=== PATIENT | male | born 1995 | race Two or more races ===

== ENCOUNTER 2025-05-25 10:25 | Outpatient (CLI) | payer MEDICAID ==
[2025-05-25 11:03] LABS: Hematocrit 44.8 % (41.0-53.0); Hemoglobin 15.0 g/dL (13.5-17.5); Mean Corpuscular Hemoglobin 27.5 pg (28.0-32.0); Mean Corpuscular Volume 81.9 fL (80.0-100.0); Nucleated Red Blood Cells % 0.1 %
[2025-05-25 11:07] LABS: Urine Protein, UAD TRACE (Negative)
[2025-05-25 11:50] LABS: Albumin 4.0 g/dL (3.2-4.8); Alkaline Phosphatase 66 U/L (46-116); Anion Gap 7 (5-15); BUN/Creatinine Ratio 8.2 (10.0-20.0); Bilirubin, Total 0.5 mg/dL (0.2-1.0); Calcium 8.8 mg/dL (8.7-10.4); Carbon Dioxide 30 mmol/L (20-31); Chloride 106 mmol/L (98-107); Cholesterol 186 mg/dL (< 200); Glucose 96 mg/dL (74-106); HDL Cholesterol 59 mg/dL (40-59); Potassium 4.8 mmol/L (3.5-5.1); Sodium 143 mmol/L (136-145); Total Protein 6.3 g/dL (5.7-8.2); Triglycerides 74 mg/dL (< 150)
[2025-05-25 11:54] LABS: Free T4 (Free Thyroxine) 1.25 ng/dL (0.89-1.76)
[2025-05-25 12:07] LABS: Alanine Aminotransferase 145 U/L (7-40); Blood Urea Nitrogen 7 mg/dL (9-23)
[2025-05-25 12:08] LABS: Amphetamine Screen, Urine Neg (NEGATIVE); Barbiturate Scree,Urine Neg (NEGATIVE); Benzodiazephine Screen, Urine Neg (NEGATIVE); Cannabinoid Screen, Urine Neg (NEGATIVE); Cocaine Screen, Urine Neg (NEGATIVE); Opiate Scree,Urine Neg (NEGATIVE); Phencyclidine Screen, Urine Neg (NEGATIVE)
== END 2025-05-25 17:00 | disposition home or self-care (01) ==
LOC: LAB 10:25
PROVIDERS: ATTEND Internal Medicine
DX: I10 Essential (primary) hypertension (principal)
CPT/HCPCS: 36415; 80053; 80061; 80307; 81001; 82306; 82607; 83036; 83880; 84439; 84443; 84484; 85025